=== PATIENT | male | born 1970 | race Hispanic/Latino ===

== ENCOUNTER 2020-08-12 10:41 | Emergency (ER) | payer OTHER ==
[~2020-08-12] VITALS: Ht 188 cm; Wt 124.7 kg
[2020-08-12] MEDS ORDERED: KETOROLAC TROMETHAMINE 30 MG/ML VIAL IV ONE (11:45)
[2020-08-12] MEDS ORDERED: ONDANSETRON HCL INJ 2MG/ML 2ML 2 MG/ML VIAL IV ONE (11:45)
[2020-08-12] MEDS ORDERED: SODIUM CHLORIDE 0.9% 1000ML 1,000 ML IV STA (11:45)
[2020-08-12] MEDS ORDERED: FAMOTIDINE 20 MG/2 ML VIAL IV ONE ×2 (11:45→12:12)
[2020-08-12] MEDS ORDERED: KETOROLAC TROMETHAMINE 30 MG/ML VIAL ONE (12:11)
[2020-08-12] MEDS ORDERED: ONDANSETRON HCL INJ 2MG/ML 2ML 2 MG/ML VIAL ONE (12:11)
[2020-08-12] MEDS ORDERED: SODIUM CHLORIDE 0.9% 1000ML 1,000 ML ONE (12:12)
[2020-08-12] MEDS ORDERED: ZOFRAN4 MG PO (13:25)
[2020-08-12] MEDS ORDERED: ULTRAM 50MG50 MG PO (13:25)
[2020-08-12] MEDS ORDERED: FAMOTIDINE20 MG PO (13:25)
[2020-08-12] MEDS ORDERED: ACETAMINOPHEN500 MG PO (13:25)
[2020-08-12 15:32] LABS: AMYLASE 1323 U/L (25-125)
[2020-08-12 15:53] LABS: LIPASE 3057 U/L (8-78)
== END 2020-08-12 13:45 | disposition home or self-care (01) ==
LOC: FSED 11:18
DX: R10.32 Left lower quadrant pain (principal); K85.90 Acute pancreatitis without necrosis or infection, unspecified; F17.210 Nicotine dependence, cigarettes, uncomplicated
CPT/HCPCS: 36415; 74176; 82150; 83690; 99284; J1885; J2405; J7030

== ENCOUNTER → 2020-08-15 | Outpatient (CLI) | payer OTHER ==
[~2020-08-15] MED LIST: ACETAMINOPHEN500 MG PO; FAMOTIDINE20 MG PO; SODIUM CHLORIDE 0.9% 50ML 50 ML ONE; ULTRAM 50MG50 MG PO; ZOFRAN4 MG PO
== END ==
LOC: MRI 12:16
PROVIDERS: ATTEND Internal Medicine Gastroenterology
DX: K85.80 Other acute pancreatitis without necrosis or infection (principal); R10.10 Upper abdominal pain, unspecified; R89.9 Unspecified abnormal finding in specimens from other organs, systems and tissues; R14.0 Abdominal distension (gaseous)
CPT/HCPCS: 74183

== ENCOUNTER → 2021-01-22 | Outpatient (CLI) | payer OTHER ==
[~2021-01-22] MED LIST changes: +GADOBENATE DIMEGLUMINE 1 ML IV ONE
== END ==
LOC: MRI 09:16
PROVIDERS: ATTEND Internal Medicine Gastroenterology
DX: K86.9 Disease of pancreas, unspecified (principal); K76.0 Fatty (change of) liver, not elsewhere classified
CPT/HCPCS: 74183; A9577